=== PATIENT | male | born 1975 | race Caucasian/White ===

== ENCOUNTER 2018-11-06 22:39 | Inpatient (IN) | payer BC, OTHER ==
[~2018-11-06] VITALS: Ht 172.7 cm; Wt 113.5 kg
--- NOTE | 2018-11-06 23:29 | NUR ---
assessment made. seen by ERP. orders made. IV placed. blood drawn. patient to bathroom to obtain urine sample.
[2018-11-06] MEDS ORDERED: SODIUM CHLORIDE FLUSH 10ML SYR IVF ONE ×2 (23:30)
[2018-11-06] MEDS ORDERED: SODIUM CHLORIDE 0.9% 1,000ML IVBOLUS ONE (23:30)
--- NOTE | 2018-11-06 23:39 | NUR ---
urine sample obtained and sent to lab.
[2018-11-06 23:40] LABS: BASOPHILS # (AUTO) 0.03 x10^3/uL (0-0.1); BASOPHILS % (AUTO) 0 % (0-1); EOSINOPHILS # (AUTO) 0.03 x10^3/uL (0-0.4); EOSINOPHILS % (AUTO) 0 % (1-7); LYMPHOCYTES # (AUTO) 1.31 x10^3/uL (1-3.4); LYMPHOCYTES % (AUTO) 8 % (22-44); MD NO; MEAN CORPUSCULAR HGB CONC 33.7 g/dL (33.2-36.2); MEAN PLATELET VOLUME 9.2 fL (7.4-10.4); MONOCYTES # (AUTO) 0.72 x10^3/uL (0.2-0.8); MONOCYTES % (AUTO) 4 % (2-9); NEUTROPHILS # (AUTO) 14.39 x10^3/uL (1.8-6.8); NEUTROPHILS % (AUTO) 87 % (42-75); PLATELET COUNT 214 x10^3/uL (130-400); RED BLOOD COUNT 5.38 x10^6/uL (4.38-5.82); RED CELL DISTRIBUTION WIDTH 13.3 % (9.4-14.8)
[2018-11-06 23:47] LABS: ALBUMIN 3.3 g/dL (3.4-5.0); ANION GAP 11 mmol/L (5-15); CALCIUM 8.4 mg/dL (8.5-10.1); CHLORIDE 110 mmol/L (98-107)
[2018-11-06 23:51] LABS: ALANINE AMINOTRANSFERASE 54 U/L (12-78); ALKALINE PHOSPHATASE 75 U/L (45-117); BILIRUBIN,TOTAL 0.8 mg/dL (0.2-1.0); CREATININE 1.08 mg/dL (0.7-1.3); TOTAL PROTEIN 7.1 g/dL (6.4-8.2)
[2018-11-06 23:58] LABS: MICROSCOPIC NOT IND
[2018-11-07 00:10] LABS: CULTURE INDICATED? NO
--- NOTE | 2018-11-07 00:47 | NUR ---
patient to CT scan.
--- NOTE | 2018-11-07 01:04 | NUR ---
back from CT scan.awaiting result.
[2018-11-07] MEDS ORDERED: METRONIDAZOLE PMX 500MG/100ML 100 ML ONE (01:22)
[2018-11-07] MEDS ORDERED: METRONIDAZOLE PMX 500MG/100ML 100 ML IV ONE (01:30)
[2018-11-07] MEDS ORDERED: SODIUM CHLORIDE 0.9% 1,000ML IVBOLUS ONE (01:30)
[2018-11-07] MEDS ORDERED: AMPICILLIN/SULBACTAM 3 GM in SODIUM CHLORIDE 0.9% 100 ML IV ONE (01:30)
--- NOTE | 2018-11-07 02:46 | NUR ---
patient still tachy @ 116. MD aware. 2nd liter infused. bed assigned. report to COURTNEY Chatman.
--- NOTE | 2018-11-07 02:47 | NUR ---
patient transported to floor.
[2018-11-07] MEDS ORDERED: POTASSIUM CHLORIDE 40 MEQ in SODIUM CHLORIDE 0.9% 500 ML IV ONE (03:30)
[2018-11-07 03:45] VITALS: BP 103/61
[2018-11-07] MEDS ORDERED: ONDANSETRON ODT 4 MG PO PRN (04:00)
[2018-11-07] MEDS ORDERED: PROMETHAZINE 25 MG/ML, 1ML IM PRN (04:00)
[2018-11-07] MEDS ORDERED: hydrALAzine 20 MG/ML, 1ML IVPush PRN (04:00)
[2018-11-07] MEDS ORDERED: ONDANSETRON 2MG/ML, 2ML IVPush PRN (04:00)
[2018-11-07] MEDS ORDERED: HYDROcodone/APAP 5/325 TABLET PO PRN (04:00)
[2018-11-07] MEDS: PIPERACILLIN/TAZO/PMX 3.375GM 50 ML IV SCH ×4 (04:30→22:42)
[2018-11-07 04:31] LABS: FREE T4 (FREE THYROXINE) 1.01 ng/dL (0.76-1.46); THYROID STIMULATING HORMONE 1.21 mIU/L (0.358-3.740)
[2018-11-07 04:51] LABS: HEMOGLOBIN A1C 5.2 % (4.2-6.3)
[2018-11-07 05:11] VITALS: BP 103/61
[2018-11-07] MEDS ORDERED: OMNIPAQUE 350 MG/ML, 100ML BOTTLE ONE (05:15)
[2018-11-07 05:42] LABS: MICROSCOPIC AUTO
[2018-11-07 05:43] LABS: CULTURE INDICATED? NO
[2018-11-07 08:09] VITALS: BP 112/72
[2018-11-07 08:09] LABS: OCCULT BLOOD POSITIVE (NEGATIVE)
[2018-11-07] MEDS: morphine SULFATE 10 MG/ML, 1ML IVPush PRN ×3 (09:17→16:24)
[2018-11-07] MEDS: D5%-0.9% NACL 1,000 ML IV SCH ×2 (09:47→17:43)
[2018-11-07 14:07] VITALS: BP 123/77
[2018-11-07] MEDS ORDERED: ACETAMINOPHEN 325 MG SUPP PR PRN (15:00)
[2018-11-07 18:46] VITALS: BP 105/66
[2018-11-08 01:20] VITALS: BP 124/82
[2018-11-08] MEDS: PIPERACILLIN/TAZO/PMX 3.375GM 50 ML IV SCH ×4 (04:30→22:57)
[2018-11-08] MEDS: D5%-0.9% NACL 1,000 ML IV SCH ×2 (04:30→13:28)
[2018-11-08 06:48] VITALS: BP 119/78
[2018-11-08 07:47] LABS: BASOPHILS # (AUTO) 0.04 x10^3/uL (0-0.1); BASOPHILS % (AUTO) 0 % (0-1); EOSINOPHILS # (AUTO) 0.01 x10^3/uL (0-0.4); EOSINOPHILS % (AUTO) 0 % (1-7); LYMPHOCYTES # (AUTO) 0.84 x10^3/uL (1-3.4); LYMPHOCYTES % (AUTO) 6 % (22-44); MD NO; MEAN CORPUSCULAR HEMOGLOBIN 31.2 pg (27.5-34.5); MEAN CORPUSCULAR HGB CONC 33.7 g/dL (33.2-36.2); MEAN CORPUSCULAR VOLUME 92.5 fL (81-97); MEAN PLATELET VOLUME 9.3 fL (7.4-10.4); MONOCYTES % (AUTO) 4 % (2-9); NEUTROPHILS # (AUTO) 12.92 x10^3/uL (1.8-6.8); NEUTROPHILS % (AUTO) 90 % (42-75); PLATELET COUNT 199 x10^3/uL (130-400); RED CELL DISTRIBUTION WIDTH 13.7 % (9.4-14.8)
[2018-11-08 07:58] LABS: ALBUMIN 2.9 g/dL (3.4-5.0); ANION GAP 11 mmol/L (5-15); CALCIUM 8.6 mg/dL (8.5-10.1); CHLORIDE 112 mmol/L (98-107)
[2018-11-08 08:02] LABS: ALANINE AMINOTRANSFERASE 73 U/L (12-78); ALKALINE PHOSPHATASE 77 U/L (45-117); CHOL/HDL RATIO 2.6; CHOLESTEROL, TOTAL 126 mg/dL (140-239); CREATININE 0.94 mg/dL (0.7-1.3); HDL CHOL % 39 % (26-37); HDL CHOLESTEROL (DIRECT) 49 mg/dL (40-60); LDL CHOLESTEROL,CALCULATED 65 mg/dL (54-169); LDL/HDL RATIO 1.3 (0.5-3.0); TOTAL PROTEIN 6.9 g/dL (6.4-8.2); TRIGLYCERIDES 59 mg/dL (50-200); VLDL CHOLESTEROL 12 mg/dL (0-25)
[2018-11-08 12:06] VITALS: BP 135/81
[2018-11-08 19:15] VITALS: BP 133/90
[2018-11-09 02:00] VITALS: BP 112/88
[2018-11-09 04:53] LABS: BASOPHILS # (AUTO) 0.05 x10^3/uL (0-0.1); BASOPHILS % (AUTO) 0 % (0-1); EOSINOPHILS # (AUTO) 0.16 x10^3/uL (0-0.4); EOSINOPHILS % (AUTO) 1 % (1-7); LYMPHOCYTES # (AUTO) 1.25 x10^3/uL (1-3.4); LYMPHOCYTES % (AUTO) 10 % (22-44); MD NO; MEAN CORPUSCULAR HEMOGLOBIN 31.6 pg (27.5-34.5); MEAN CORPUSCULAR HGB CONC 34.1 g/dL (33.2-36.2); MEAN CORPUSCULAR VOLUME 92.4 fL (81-97); MEAN PLATELET VOLUME 8.9 fL (7.4-10.4); MONOCYTES # (AUTO) 0.72 x10^3/uL (0.2-0.8); MONOCYTES % (AUTO) 6 % (2-9); NEUTROPHILS # (AUTO) 10.01 x10^3/uL (1.8-6.8); NEUTROPHILS % (AUTO) 82 % (42-75); PLATELET COUNT 196 x10^3/uL (130-400); RED BLOOD COUNT 4.75 x10^6/uL (4.38-5.82); RED CELL DISTRIBUTION WIDTH 13.4 % (9.4-14.8)
[2018-11-09 05:01] LABS: ALBUMIN 2.5 g/dL (3.4-5.0); ANION GAP 5 mmol/L (5-15); CALCIUM 8.8 mg/dL (8.5-10.1); CHLORIDE 116 mmol/L (98-107)
[2018-11-09] MEDS: PIPERACILLIN/TAZO/PMX 3.375GM 50 ML IV SCH ×4 (05:04→22:32)
[2018-11-09 05:05] LABS: ALANINE AMINOTRANSFERASE 58 U/L (12-78); ALKALINE PHOSPHATASE 71 U/L (45-117); CREATININE 0.99 mg/dL (0.7-1.3); TOTAL PROTEIN 6.4 g/dL (6.4-8.2)
[2018-11-09 07:11] VITALS: BP 149/89
[2018-11-09 13:16] VITALS: BP 123/85
[2018-11-09 19:55] VITALS: BP 130/87
[2018-11-10 02:00] VITALS: BP 146/87
[2018-11-10 04:58] LABS: BASOPHILS # (AUTO) 0.05 x10^3/uL (0-0.1); BASOPHILS % (AUTO) 1 % (0-1); EOSINOPHILS # (AUTO) 0.24 x10^3/uL (0-0.4); EOSINOPHILS % (AUTO) 3 % (1-7); LYMPHOCYTES # (AUTO) 1.17 x10^3/uL (1-3.4); LYMPHOCYTES % (AUTO) 12 % (22-44); MD NO; MEAN CORPUSCULAR HEMOGLOBIN 31.5 pg (27.5-34.5); MEAN CORPUSCULAR HGB CONC 34.4 g/dL (33.2-36.2); MEAN CORPUSCULAR VOLUME 91.4 fL (81-97); MEAN PLATELET VOLUME 8.8 fL (7.4-10.4); MONOCYTES # (AUTO) 0.68 x10^3/uL (0.2-0.8); MONOCYTES % (AUTO) 7 % (2-9); NEUTROPHILS # (AUTO) 7.43 x10^3/uL (1.8-6.8); NEUTROPHILS % (AUTO) 78 % (42-75); PLATELET COUNT 227 x10^3/uL (130-400); RED BLOOD COUNT 4.83 x10^6/uL (4.38-5.82); RED CELL DISTRIBUTION WIDTH 13.8 % (9.4-14.8)
[2018-11-10 05:10] LABS: ANION GAP 8 mmol/L (5-15); CALCIUM 8.4 mg/dL (8.5-10.1); CHLORIDE 115 mmol/L (98-107)
[2018-11-10 05:11] LABS: CREATININE 0.84 mg/dL (0.7-1.3)
[2018-11-10] MEDS: PIPERACILLIN/TAZO/PMX 3.375GM 50 ML IV SCH ×2 (05:34→10:15)
[2018-11-10 06:58] VITALS: BP 128/87
[2018-11-10] MEDS ORDERED: POTASSIUM CHLORIDE 20 MEQ TAB.ER.PRT PO ONE (07:30)
[2018-11-10] MEDS ORDERED: METR500T PO (08:28)
[2018-11-10] MEDS ORDERED: CEFD300C37 PO (08:28)
== END 2018-11-10 14:15 | disposition home or self-care (01) | DRG 871 ==
LOC: ED 11-07 01:29 → EDIP 11-07 02:31 → 3NE 11-07 02:55 → DCLOUNGE 11-10 14:00
PROVIDERS: ADMIT Internal Medicine; ATTEND Internal Medicine
PROC: 5A09357 Assistance with Respiratory Ventilation, Less than 24 Consecutive Hours, Continuous Positive Airway Pressure (ICD-10-PCS; principal; 2018-11-09)
PROC: 5A09357 Assistance with Respiratory Ventilation, Less than 24 Consecutive Hours, Continuous Positive Airway Pressure (ICD-10-PCS; 2018-11-10)
DX: A41.9 Sepsis, unspecified organism (principal); K57.93 Diverticulitis of intestine, part unspecified, without perforation or abscess with bleeding; G47.33 Obstructive sleep apnea (adult) (pediatric); K44.9 Diaphragmatic hernia without obstruction or gangrene; K76.0 Fatty (change of) liver, not elsewhere classified; Z80.6 Family history of leukemia; Z87.442 Personal history of urinary calculi
CPT/HCPCS: 36415; 84145; 99285; J7042; 74177; 80048; 80053; 80061; 81001; 81003; 82272; 83036; 83605; 83690; 83735; 84439; 84443; 85014; 85018; 85025; 86900; 87040; 96361; 96365; 96367; G0378; J0295; J2543; J3480; Q9967; J2270; J7030; J7040